=== PATIENT | female | born 2000 | race African-American/Black ===

== ENCOUNTER 2021-09-27 12:40 | Inpatient (IN) | payer OTHER ==
[2021-09-27 13:19] VITALS: BMI 41.9
[2021-09-27] MEDS ORDERED: LIDOCAINE HCL 1% PRESERVATIVE FREE - 30ML VIAL ONE (14:35)
[2021-09-27] MEDS ORDERED: OXYTOCIN 20 UNITS in 0.9% NS 20 UNIT/1,000 ML INFUS.BAG IV ONE ×2 (14:38→16:22)
[2021-09-27 15:12] LABS: BASO % 0.3 % (0-2.0); HEMATOCRIT 39.6 % (32.4-45.2); HEMOGLOBIN 12.8 GM/dL (10.7-15.3); LYMPH % 10.4 % (8-40); MCH 29.4 pg (25.7-33.7); MCHC 32.3 g/dl (32.0-36.0); MEAN CELL VOLUME 90.9 fl (80-96); MEAN PLT VOLUME 11.3 fl (7.5-11.1); NEUT % 86.3 % (42.8-82.8); PLATELET COUNT 126 10^3/uL (134-434); RBC 4.36 M/mm3 (3.60-5.2); RDW 21.8 % (11.6-15.6); WHITE BLOOD COUNT 12.6 K/mm3 (4.0-10.0)
[2021-09-27 15:17] LABS: INR 0.91 (0.83-1.09); PROTHROMBIN TIME (PATIENT) 10.5 SEC (9.7-13.0)
[2021-09-27 15:20] LABS: ACTIVATED PTT 25.8 SECONDS (25.2-36.5)
[2021-09-27 15:41] LABS: CALCIUM 8.9 mg/dL (8.5-10.1)
[2021-09-27 15:42] LABS: BLOOD UREA NITROGEN 6.3 mg/dL (7-18)
[2021-09-27 15:45] LABS: CREATININE 0.8 mg/dL (0.55-1.3)
[2021-09-27] MEDS ORDERED: BENZOCAINE 28 GM HEMORRHOIDAL OINTMENT TP PRN (15:47)
[2021-09-27] MEDS ORDERED: BISACODYL 10 MG SUPP.RECT RC PRN (15:47)
[2021-09-27] MEDS ORDERED: oxyCODONE HCL 5 MG TABLET PO PRN (15:47)
[2021-09-27] MEDS ORDERED: METHYLERGONOVINE MALEATE 0.2 MG/1 ML AMP IM PRN (15:47)
[2021-09-27] MEDS ORDERED: WITCH HAZEL 50% (TUCKS) 40 PAD/JAR PAD TP PRN (15:47)
[2021-09-27] MEDS ORDERED: ACETAMINOPHEN 325 MG TABLET (FP) PO PRN (15:47)
[2021-09-27] MEDS ORDERED: BENZOCAINE 20% 57 GM BOTTLE TP PRN (15:47)
[2021-09-27 15:49] LABS: ANISOCYTOSIS 1+; MACROCYTOSIS 0; OVALOCYTE 1+
[2021-09-27] MEDS ORDERED: OXYTOCIN 20 UNITS in 0.9% NS 20 UNIT/1,000 ML INFUS.BAG IV SCH (16:00)
[2021-09-27 17:25] LABS: SYPHILIS W/ RPR CONF NON-REACTIVE (NONREACTIVE)
[2021-09-27 17:54] LABS: HIV INTERPRETATION NEGATIVE (NEGATIVE)
[2021-09-27] MEDS: IBUPROFEN 600 MG TABLET (FP) PO PRN (18:06)
[2021-09-28 11:04] LABS: BASO % 0.3 % (0-2.0); EOS % 0.3 % (0-4.5); HEMATOCRIT 32.3 % (32.4-45.2); HEMOGLOBIN 10.7 GM/dL (10.7-15.3); LYMPH % 20.4 % (8-40); MCH 30.1 pg (25.7-33.7); MCHC 33.2 g/dl (32.0-36.0); MEAN CELL VOLUME 90.7 fl (80-96); MEAN PLT VOLUME 11.7 fl (7.5-11.1); MONO % 6.8 % (3.8-10.2); NEUT % 72.2 % (42.8-82.8); PLATELET COUNT 98 10^3/uL (134-434); RBC 3.56 M/mm3 (3.60-5.2); RDW 21.9 % (11.6-15.6); WHITE BLOOD COUNT 12.3 K/mm3 (4.0-10.0)
[2021-09-28] MEDS: IBUPROFEN 600 MG TABLET (FP) PO PRN (16:25)
[2021-09-28] MEDS ORDERED: SENNOSIDES/DOCUSATE COMBO (SENNA PLUS) TABLET (UD) PO PRN (22:00)
[2021-09-29] MEDS: IBUPROFEN 600 MG TABLET (FP) PO PRN (02:54)
[2021-09-29 11:26] VITALS: BP 120/80; PULSE 80; TEMP 98.7
== END 2021-09-29 12:20 | disposition home or self-care (01) | DRG 807 ==
LOC: JLDR 12:40 → J3W 16:50
PROVIDERS: ADMIT Obstetrics & Gynecology; ATTEND Obstetrics & Gynecology
PROC: 10E0XZZ Delivery of Products of Conception, External Approach (ICD-10-PCS; principal; 2021-09-27)
PROC: 0W8NXZZ Division of Female Perineum, External Approach (ICD-10-PCS; 2021-09-27)
PROC: 0HQ9XZZ Repair Perineum Skin, External Approach (ICD-10-PCS; 2021-09-27)
DX: O48.0 Post-term pregnancy (principal); Z37.0 Single live birth; O66.0 Obstructed labor due to shoulder dystocia; O70.0 First degree perineal laceration during delivery; Z3A.40 40 weeks gestation of pregnancy
CPT/HCPCS: 36415; 59409; 80048; 85025; 85610; 85730; 86780; 86850; 86900; 86901; 87389; C9803-CS; U0003; U0005

== ENCOUNTER 2023-01-24 10:05 | Inpatient (IN) | payer OTHER ==
[2023-01-24] MEDS ORDERED: ELECTROLYTE-148 SOLN 500 ML IV SCH (10:15)
[2023-01-24 11:22] VITALS: BMI 45.1
[2023-01-24] MEDS ORDERED: CITRIC ACID/SODIUM CITRATE 30 ML UNIT-DOSE CUP PO ONE ×2 (12:45→15:29)
[2023-01-24] MEDS: ELECTROLYTE-148 SOLN 1,000 ML IV SCH (12:56)
[2023-01-24] MEDS ORDERED: OXYTOCIN 10 UNITS/ML VIAL ONE (13:40)
[2023-01-24] MEDS ORDERED: morphine SULFATE/PF 1 MG/2 ML (2cc Syringe - QUVA) ONE (13:40)
[2023-01-24] MEDS ORDERED: PHENYLEPHRINE HCL 10 MG/1 ML SINGLE DOSE VIAL ONE (13:40)
[2023-01-24] MEDS ORDERED: ceFAZolin SODIUM 1 GM VIAL ONE (13:40)
[2023-01-24] MEDS ORDERED: KETOROLAC TROMETHAMINE 30 MG/1 ML VIAL ONE (13:40)
[2023-01-24] MEDS ORDERED: ONDANSETRON 4 MG/2 ML VIAL ONE (13:40)
[2023-01-24] MEDS ORDERED: FENTANYL CITRATE/PF 50 MCG/ML VIAL ONE (13:40)
[2023-01-24] MEDS ORDERED: SENNOSIDES/DOCUSATE COMBO (SENNA PLUS) TABLET (UD) PO PRN (15:30)
[2023-01-24] MEDS ORDERED: METHYLERGONOVINE MALEATE 0.2 MG/1 ML AMP IM PRN (15:30)
[2023-01-24] MEDS: OXYTOCIN 20 UNITS in 0.9% NS 20 UNIT/1,000 ML INFUS.BAG IV SCH (16:21)
[2023-01-24] MEDS ORDERED: OXYTOCIN 20 UNITS in 0.9% NS 20 UNIT/1,000 ML INFUS.BAG IV ONE (16:40)
[2023-01-24] MEDS: ACETAMINOPHEN 1000 MG/100 ML BAG IVPB PRN (19:54)
[2023-01-25] MEDS: IBUPROFEN 800 MG/8 ML IJ IVPB PRN ×2 (01:01→08:30)
[2023-01-25] MEDS: OXYTOCIN 20 UNITS in 0.9% NS 20 UNIT/1,000 ML INFUS.BAG IV SCH ×2 (01:08→16:14)
[2023-01-25] MEDS ORDERED: oxyCODONE HCL 5 MG TABLET PO PRN ×2 (03:30)
[2023-01-25] MEDS: ACETAMINOPHEN 1000 MG/100 ML BAG IVPB PRN (06:11)
[2023-01-25 07:52] LABS: BASO % 0.4 % (0-2.0); EOS % 1.1 % (0-4.5); HEMATOCRIT 34.6 % (32.4-45.2); HEMOGLOBIN 11.1 GM/dL (10.7-15.3); LYMPH % 25.3 % (8-40); MEAN CELL VOLUME 90.5 fl (80-96); MEAN PLT VOLUME 11.2 fl (7.5-11.1); MONO % 6.8 % (3.8-10.2); NEUT % 66.4 % (42.8-82.8); PLATELET COUNT 89 10^3/uL (134-434); RBC 3.82 M/mm3 (3.60-5.2); RDW 17.8 % (11.6-15.6); WHITE BLOOD COUNT 7.4 K/mm3 (4.0-10.0)
[2023-01-25] MEDS: FERROUS SO4 325 MG TABLET (FP) PO SCH (09:59)
[2023-01-25] MEDS: PRENATAL VITAMINS W/ FOLIC ACID TABLET (FP) PO SCH (09:59)
[2023-01-25] MEDS: SIMETHICONE 80 MG TAB.CHEW (FP) PO PRN ×2 (10:09→20:20)
[2023-01-25] MEDS: IBUPROFEN 600 MG TABLET (FP) PO PRN ×2 (14:41→20:19)
[2023-01-25] MEDS: ELECTROLYTE-148 SOLN 1,000 ML IV SCH (14:42)
[2023-01-25 14:43] VITALS: RESP 18
[2023-01-25] MEDS ORDERED: BISACODYL 10 MG SUPP.RECT RC PRN (15:30)
[2023-01-25] MEDS: ACETAMINOPHEN 325 MG TABLET (FP) PO PRN ×2 (17:51→21:03)
[2023-01-25] MEDS ORDERED: guaiFENesin 200 MG/10 ML 10 ML UNIT-DOSE CUPS PO PRN (20:08)
[2023-01-26] MEDS: IBUPROFEN 600 MG TABLET (FP) PO PRN ×3 (05:23→14:57)
[2023-01-26] MEDS: FERROUS SO4 325 MG TABLET (FP) PO SCH (09:18)
[2023-01-26] MEDS: PRENATAL VITAMINS W/ FOLIC ACID TABLET (FP) PO SCH (09:18)
[2023-01-26] MEDS: SIMETHICONE 80 MG TAB.CHEW (FP) PO PRN ×2 (09:18→14:57)
[2023-01-27] MEDS: IBUPROFEN 600 MG TABLET (FP) PO PRN ×2 (01:04→09:02)
[2023-01-27] MEDS: FERROUS SO4 325 MG TABLET (FP) PO SCH (09:02)
[2023-01-27] MEDS: PRENATAL VITAMINS W/ FOLIC ACID TABLET (FP) PO SCH (09:02)
[2023-01-27] MEDS: SIMETHICONE 80 MG TAB.CHEW (FP) PO PRN (09:02)
[2023-01-27 09:23] LABS: BASO % 0.3 % (0-2.0); EOS % 2.6 % (0-4.5); HEMATOCRIT 36.4 % (32.4-45.2); HEMOGLOBIN 11.4 GM/dL (10.7-15.3); LYMPH % 25.6 % (8-40); MCH 28.7 pg (25.7-33.7); MCHC 31.4 g/dl (32.0-36.0); MEAN CELL VOLUME 91.2 fl (80-96); MEAN PLT VOLUME 10.7 fl (7.5-11.1); MONO % 5.9 % (3.8-10.2); NEUT % 65.6 % (42.8-82.8); PLATELET COUNT 118 10^3/uL (134-434); RBC 3.99 M/mm3 (3.60-5.2); RDW 18.5 % (11.6-15.6); WHITE BLOOD COUNT 8.4 K/mm3 (4.0-10.0)
[2023-01-27 10:40] VITALS: BP 113/73; PULSE 74; TEMP 97.9
== END 2023-01-27 12:30 | disposition home or self-care (01) | DRG 788 ==
LOC: JLDR 10:05 → J3W 17:00
PROVIDERS: ADMIT Obstetrics & Gynecology; ATTEND Obstetrics & Gynecology
PROC: 10D00Z1 Extraction of Products of Conception, Low, Open Approach (ICD-10-PCS; principal; 2023-01-23)
DX: O32.2XX2 Maternal care for transverse and oblique lie, fetus 2 (principal); O16.4 Unspecified maternal hypertension, complicating childbirth; O69.81X0 Labor and delivery complicated by cord around neck, without compression, not applicable or unspecified; O30.043 Twin pregnancy, dichorionic/diamniotic, third trimester; Z3A.38 38 weeks gestation of pregnancy; Z37.2 Twins, both liveborn
CPT/HCPCS: 36415; 85025; 88307-TC; 94010